=== PATIENT | female | born 1980 ===

== ENCOUNTER 2019-12-18 13:00 | Emergency (ER) | payer SELFPAY ==
[2019-12-18 14:41] LABS: #Lymphocytes 1.4 thou/uL (1.20-3.40); #Monocytes 0.5 thou/uL (0.11-0.59); #Neutrophils 4.3 thou/uL (1.40-6.50); %Basophils 0.7 % (0.0-1.0); %Eosinophils 0.1 % (0.0-10.0); %Lymphocytes 21.7 % (21.0-51.0); %Monocytes 8.4 % (0.0-10.0); %Neutrophils 69.1 % (42.0-75.0); Hemoglobin 12.5 g/dL (12.0-16.0); Mean Corpuscular HGB CONC 33.1 g/dL (32.0-36.0); Mean Corpuscular Hemoglobin 30.9 pg (27.0-31.0); Mean Corpuscular Volume 93.5 fL (78.0-98.0); Mean Platelet Volume 8.7 fL (7.4-10.4); Platelet Count 300 thou/uL (130-400); RBC Distribution Width 12.1 % (11.5-14.5); Red Blood Cell (RBC) Count 4.05 mill/uL (4.20-5.40); White Blood Cell (WBC) Count 6.2 thou/uL (4.8-10.8)
[2019-12-18] MEDS ORDERED: Ketorolac Tromethamine 30 MG/ML VIAL ONE (15:06)
[2019-12-18] MEDS ORDERED: Acetaminophen 500 MG TAB ONE (15:06)
[2019-12-18 15:08] LABS: ALT (SGPT) 13 U/L (8-55); AST (SGOT) 17 U/L (5-34); Albumin 3.8 g/dL (3.5-5.0); Alkaline Phosphatase 58 U/L (40-110); Anion Gap 13 mmol/L (10-20); BUN (Urea Nitrogen) 9 mg/dL (7.0-18.7); Bilirubin, Total 0.2 mg/dL (0.2-1.2); Calc. Creatinine Clearance 0 mL/min (70-130); Calcium 8.8 mg/dL (7.8-10.44); Carbon Dioxide 27 mmol/L (22-29); Chloride 104 mmol/L (98-107); Estimated GFR-MDRD 78; Globulin 2.9 g/dL (2.4-3.5); Glucose 87 mg/dL (70-105); Potassium 5.3 mmol/L (3.5-5.1); Protein, Total 6.7 g/dL (6.0-8.3); Sodium 139 mmol/L (136-145)
[2019-12-18] MEDS ORDERED: Metoclopramide HCl 10 MG TAB ONE (15:12)
--- NOTE | 2019-12-20 15:29 | EKG ---
Test Reason : Blood Pressure : / mmHG Vent. Rate : 089 BPM Atrial Rate : 089 BPM P-R Int : 108 ms QRS Dur : 080 ms QT Int : 370 ms P-R-T Axes : 012 068 040 degrees QTc Int : 450 ms Sinus rhythm with short DE Otherwise normal ECG Confirmed by KIMBERLY EID DO ([id number]), acquisition editor DUNG PRADO ([id number]) on 12/20/2019 3:29:22 PM Referred By: Confirmed By:KIMBERLY EID DO
== END 2019-12-18 16:08 | disposition home or self-care (01) ==
LOC: ERS 13:00
DX: R51 Headache (principal); E87.5 Hyperkalemia
CPT/HCPCS: 36415; 80053; 85025; 93005; 96372; J1885